=== PATIENT | female | born 1990 | race Two or more races ===

== ENCOUNTER 2018-10-21 07:03 | Day surgery (SDC) | payer OTHER | END 2018-10-21 15:45 | disposition home or self-care (01) | LOC: CIR.AMB 07:03 | DX: O02.1 Missed abortion (principal); Z3A.01 Less than 8 weeks gestation of pregnancy ==

== ENCOUNTER 2020-01-02 02:32 | Emergency (ER) | payer OTHER ==
[~2020-01-02] VITALS: Ht 149.9 cm; Wt 68.0 kg
[2020-01-02] MEDS ORDERED: PRENA1 TRUE CO1 EACH (02:49)
[2020-01-02] MEDS ORDERED: PEPCID40 MG PO (05:03)
[2020-01-02] MEDS ORDERED: ZOFRAN4 MG PO (05:03)
[2020-01-03] MEDS ORDERED: PRENATAL TABLE1 EAC1 PO (22:09)
== END 2020-01-02 05:16 | disposition home or self-care (01) ==
LOC: ER 02:32
DX: O26.892 Other specified pregnancy related conditions, second trimester (principal); R10.13 Epigastric pain; Z34.02 Encounter for supervision of normal first pregnancy, second trimester

== ENCOUNTER 2020-01-03 21:49 | Inpatient (IN) | payer OTHER ==
[~2020-01-03] VITALS: Ht 149.9 cm; Wt 68.0 kg
[~2020-01-03 21:49] MED LIST: PEPCID40 MG PO; PRENA1 TRUE CO1 EACH; ZOFRAN4 MG PO
[2020-01-03] MEDS ORDERED: PRENATAL TABLE1 EAC1 PO (22:09)
== END 2020-01-06 11:52 | disposition home or self-care (01) | DRG 833 ==
LOC: OBS/DEL 21:49 → OB/GYN 01-04 04:23 → LDR 01-04 04:23 → OB/GYN 01-04 09:46
PROVIDERS: ADMIT Obstetrics & Gynecology; ATTEND Obstetrics & Gynecology
PROC: 4A1HXCZ Monitoring of Products of Conception, Cardiac Rate, External Approach (ICD-10-PCS; principal; 2020-01-04)
DX: O99.612 Diseases of the digestive system complicating pregnancy, second trimester (principal); K80.80 Other cholelithiasis without obstruction; O26.892 Other specified pregnancy related conditions, second trimester; R10.13 Epigastric pain
CPT/HCPCS: 240

== ENCOUNTER 2020-03-29 10:45 | Inpatient (IN) | payer OTHER ==
[~2020-03-29] VITALS: Ht 149.9 cm; Wt 68.9 kg
[~2020-03-29 10:45] MED LIST changes: +PRENATAL TABLE1 EAC1 PO
[2020-04-01] MEDS ORDERED: HYDROXYZINE PAM50 MG PO (06:33)
[2020-04-01] MEDS ORDERED: NIFEDIPINE10 MG PO (06:33)
== END 2020-04-01 10:14 | disposition home or self-care (01) | DRG 832 ==
LOC: OBS/DEL 10:45 → LDR 03-30 04:53 → SURG-SUITE 03-31 08:27
PROVIDERS: ADMIT Obstetrics & Gynecology; ATTEND Obstetrics & Gynecology
PROC: 4A1HXFZ Monitoring of Products of Conception, Cardiac Rhythm, External Approach (ICD-10-PCS; principal; 2020-03-30)
DX: O47.03 False labor before 37 completed weeks of gestation, third trimester (principal); O26.613 Liver and biliary tract disorders in pregnancy, third trimester; K80.20 Calculus of gallbladder without cholecystitis without obstruction; Z3A.32 32 weeks gestation of pregnancy

== ENCOUNTER 2020-05-07 02:48 | Outpatient (CLI) | payer OTHER ==
[~2020-05-07 02:48] MED LIST changes: +HYDROXYZINE PAM50 MG PO; +NIFEDIPINE10 MG PO
[2020-05-07] MEDS ORDERED: PRENATAL TABLE1 EAC1 PO (03:00)
== END 2020-05-07 17:21 | disposition home or self-care (01) ==
LOC: OBS/DEL 02:48
PROVIDERS: ATTEND Obstetrics & Gynecology
DX: O47.1 False labor at or after 37 completed weeks of gestation (principal); Z3A.37 37 weeks gestation of pregnancy

== ENCOUNTER 2020-05-17 05:13 | Inpatient (IN) | payer OTHER ==
[~2020-05-17] VITALS: Ht 149.9 cm; Wt 72.6 kg
== END 2020-05-19 13:54 | disposition home or self-care (01) | DRG 807 ==
LOC: LDR 05:13 → SURG-SUITE 17:33
PROVIDERS: ADMIT Obstetrics & Gynecology; ATTEND Obstetrics & Gynecology
PROC: 10E0XZZ Delivery of Products of Conception, External Approach (ICD-10-PCS; principal; 2020-05-17)
PROC: 0KQM0ZZ Repair Perineum Muscle, Open Approach (ICD-10-PCS; 2020-05-17)
PROC: 10907ZC Drainage of Amniotic Fluid, Therapeutic from Products of Conception, Via Natural or Artificial Opening (ICD-10-PCS; 2020-05-17)
PROC: 3E033VJ Introduction of Other Hormone into Peripheral Vein, Percutaneous Approach (ICD-10-PCS; 2020-05-17)
PROC: 3E0P7VZ Introduction of Hormone into Female Reproductive, Via Natural or Artificial Opening (ICD-10-PCS; 2020-05-17)
PROC: 4A1HXFZ Monitoring of Products of Conception, Cardiac Rhythm, External Approach (ICD-10-PCS; 2020-05-17)
DX: O70.1 Second degree perineal laceration during delivery (principal); Z37.0 Single live birth; Z3A.39 39 weeks gestation of pregnancy; Z20.822 Contact with and (suspected) exposure to COVID-19

== ENCOUNTER 2022-07-19 19:30 | Outpatient (CLI) | payer OTHER | END 2022-07-19 20:29 | disposition home or self-care (01) | LOC: NST 19:30 | PROVIDERS: ATTEND Obstetrics & Gynecology | DX: Z34.83 Encounter for supervision of other normal pregnancy, third trimester (principal) ==

== ENCOUNTER 2022-09-10 02:59 | Inpatient (IN) | payer OTHER ==
[~2022-09-10] VITALS: Ht 149.9 cm; Wt 76.2 kg
[2022-09-10] MEDS ORDERED: PRENATAL TABLE1 EAC1 PO (03:17)
== END 2022-09-12 12:04 | disposition home or self-care (01) | DRG 807 ==
LOC: OB/GYN 02:59 → LDR 02:59 → OB/GYN 10:22
PROVIDERS: ADMIT Obstetrics & Gynecology; ATTEND Obstetrics & Gynecology
PROC: 10E0XZZ Delivery of Products of Conception, External Approach (ICD-10-PCS; principal; 2022-09-10)
PROC: 0UQG7ZZ Repair Vagina, Via Natural or Artificial Opening (ICD-10-PCS; 2022-09-10)
PROC: 0UQMXZZ Repair Vulva, External Approach (ICD-10-PCS; 2022-09-10)
PROC: 4A1HXCZ Monitoring of Products of Conception, Cardiac Rate, External Approach (ICD-10-PCS; 2022-09-10)
DX: O70.0 First degree perineal laceration during delivery (principal); Z37.0 Single live birth; O71.82 Other specified trauma to perineum and vulva; Z3A.36 36 weeks gestation of pregnancy